=== PATIENT | male | born 1960 | race African-American/Black ===

== ENCOUNTER 2021-09-10 11:41 | Inpatient (IN) | payer BC, OTHER ==
[~2021-09-10 11:41] MED LIST: Iopamidol 300 61% 100 ML VIAL FS ONE
[2021-09-10] MEDS ORDERED: Morphine 4 MG/ML VIAL ONE ×2 (12:29→16:58)
[2021-09-10] MEDS ORDERED: Ondansetron PF 4 MG/2 ML Vial ONE (12:29)
[2021-09-10] MEDS ORDERED: Morphine 2 MG/ML VIAL ONE ×2 (13:01→16:58)
[2021-09-10 13:03] LABS: #Monocytes 1.2 10x3/uL (0.0-1.1); #Neutrophils 16.9 10x3/uL (1.5-8.4); %Basophils 0.2 % (0.0-2.0); %Eosinophils 0.1 % (0.0-6.0); %Lymphocytes 3.2 % (18.0-47.0); %Monocytes 6.5 % (0.0-10.0); %Neutrophils 89.4 % (40.0-75.0); Hemoglobin 13.5 g/dL (13.5-17.5); Mean Corpuscular HGB CONC 33.8 g/dL (32.0-36.0); Mean Corpuscular Hemoglobin 31.4 pg (27.0-33.0); Mean Corpuscular Volume 92.8 fl (81.2-95.1); Mean Platelet Volume 10.4 fl (7.4-10.4); Platelet Count 253 10x3/uL (150-450); RBC Distribution Width 13.9 % (11.5-14.5); White Blood Cell (WBC) Count 18.9 10x3/uL (3.5-10.5)
[2021-09-10 13:19] LABS: ALT (SGPT) 31 U/L (8-55); AST (SGOT) 26 U/L (5-34); Alkaline Phosphatase 62 U/L (40-110); Anion Gap 15 mmol/L (10-20); BUN (Urea Nitrogen) 10 mg/dL (8.4-25.7); Bilirubin, Total 1.5 mg/dL (0.2-1.2); Calc. Creatinine Clearance 0 mL/min (70-130); Calcium 9.4 mg/dL (7.8-10.44); Carbon Dioxide 25 mmol/L (23-31); Chloride 104 mmol/L (98-107); Globulin 2.7 g/dL (2.4-3.5); Glucose 131 mg/dL (80-115); Lipase 54 U/L (8-78); Potassium 4.1 mmol/L (3.5-5.1); Protein, Total 6.7 g/dL (5.8-8.1); Sodium 140 mmol/L (136-145)
[2021-09-10] MEDS ORDERED: Haloperidol Lactate 5 MG/ML VIAL ONE (13:56)
[2021-09-10] MEDS ORDERED: Piperacillin/Tazobactam 4.5 GM VIAL ONE (15:07)
[2021-09-10] MEDS ORDERED: Promethazine HCl 25 MG/ML VIAL IM PRN (18:03)
[2021-09-10] MEDS ORDERED: Dextrose 5% in Water 1,000 ML IV PRN (18:03)
[2021-09-10] MEDS ORDERED: Calcium Carbonate 500 MG ChewTAB PO PRN (18:03)
[2021-09-10] MEDS ORDERED: HYDROcodone/Acetaminophen 10/325 mg Tablet PO PRN (18:03)
[2021-09-10] MEDS ORDERED: hydrALAZINE 20 MG/ML VIAL SLOW IVP PRN (18:03)
[2021-09-10] MEDS ORDERED: Mag-Al 1200 mg/1200 mg/30 ML UDCUP PO PRN (18:03)
[2021-09-10] MEDS ORDERED: Dextrose 50% Abboject 50 ML SYRINGE SLOW IVP PRN (18:03)
[2021-09-10] MEDS ORDERED: Ondansetron PF 4 MG/2 ML Vial IVP PRN (18:03)
[2021-09-10] MEDS: Famotidine/PF 20 mg/2ml Vial SLOW IVP SCH (21:56)
[2021-09-10] MEDS: D5 1/2 NS w/20 mEq KCL 1,000 ML IV SCH (21:57)
[2021-09-10] MEDS: Morphine 4 MG/ML VIAL SLOW IVP PRN (22:00)
[2021-09-10] MEDS: Famotidine 20 MG TAB PO SCH (22:03)
[2021-09-10] MEDS: Piperacillin/Tazobactam 3.375 GM in Sodium Chloride 0.9% 100 ML IVPB SCH (23:06)
[2021-09-10 23:45] VITALS: BMI 39.5
[2021-09-11] MEDS: Ketorolac Tromethamine 30 MG/ML VIAL IVP SCH ×3 (00:30→19:49)
[2021-09-11] MEDS: Morphine 4 MG/ML VIAL SLOW IVP PRN ×2 (02:33→04:38)
[2021-09-11 03:34] LABS: SARS-CoV-2 NAA Rapid Test Not Detected (NotDetected)
[2021-09-11] MEDS: D5 1/2 NS w/20 mEq KCL 1,000 ML IV SCH ×3 (04:42→21:44)
[2021-09-11] MEDS ORDERED: Bupivacaine 0.25% HCL 30 ML VIAL ONE (06:53)
[2021-09-11] MEDS ORDERED: EPINEPHrine 1 MG/ML AMP ONE (06:54)
[2021-09-11] MEDS ORDERED: Iopamidol 0 ML ONE (06:55)
[2021-09-11] MEDS ORDERED: Iopamidol 15 ML ONE (06:55)
[2021-09-11] MEDS: Piperacillin/Tazobactam 3.375 GM in Sodium Chloride 0.9% 100 ML IVPB SCH ×3 (07:03→21:45)
[2021-09-11] MEDS ORDERED: Lidocaine 1% PF 5 ML VIAL ONE (07:40)
[2021-09-11] MEDS ORDERED: Glycopyrrolate 0.2 MG/ML 5 ML SYRINGE ONE ×2 (07:40→07:41)
[2021-09-11] MEDS ORDERED: Midazolam HCl 2 mg/2 ml Vial ONE (07:40)
[2021-09-11] MEDS ORDERED: Ondansetron PF 4 MG/2 ML Vial ONE (07:40)
[2021-09-11] MEDS ORDERED: Fentanyl 250 MCG/5 ML VIAL ONE (07:40)
[2021-09-11] MEDS ORDERED: Dexamethasone 4 mg/ml Vial ONE (07:40)
[2021-09-11] MEDS ORDERED: PROPOFOL 40 ML ONE (07:40)
[2021-09-11] MEDS ORDERED: Metoclopramide HCl 10 MG/2 ML VIAL ONE (07:40)
[2021-09-11] MEDS ORDERED: Rocuronium Bromide 10 MG/ML (10ML VIAL) ONE ×2 (07:40→10:29)
[2021-09-11] MEDS ORDERED: Succinylcholine 200 MG/10 ml SYRINGE FS ONE (07:41)
[2021-09-11] MEDS ORDERED: Ketorolac Tromethamine 30 MG/ML VIAL ONE (07:41)
[2021-09-11] MEDS ORDERED: PHENYLEPHRINE-NS 100 MCG/ML 10 ML SYRINGE ONE ×3 (07:54→09:22)
[2021-09-11] MEDS ORDERED: SUGAMMADEX SODIUM 200 MG/2 ML VIAL ONE (11:05)
[2021-09-11] MEDS ORDERED: Fentanyl 100 MCG/2 ML VIAL ONE (11:13)
[2021-09-11] MEDS ORDERED: diphenhydrAMINE 25 MG CAP PO PRN (12:00)
[2021-09-11] MEDS ORDERED: Zolpidem Tartrate 5 MG TAB PO PRN (12:00)
[2021-09-11] MEDS ORDERED: fentaNYL Citrate/PF 1,000 MCG in Sodium Chloride 0.9% 30 ML IV PRN (12:00)
[2021-09-11] MEDS ORDERED: diphenhydrAMINE 50 MG/ML VIAL IM/IV PRN (12:00)
[2021-09-11] MEDS ORDERED: Ondansetron PF 4 MG/2 ML Vial IVP PRN (12:00)
[2021-09-11] MEDS ORDERED: Promethazine HCl 25 MG/ML VIAL IM PRN (12:00)
[2021-09-11] MEDS: Famotidine 20 MG TAB PO SCH (13:12)
[2021-09-11] MEDS: Famotidine/PF 20 mg/2ml Vial SLOW IVP SCH ×2 (13:12→21:46)
[2021-09-12] MEDS: Famotidine 20 MG TAB PO SCH ×3 (00:35→21:07)
[2021-09-12] MEDS: Ketorolac Tromethamine 30 MG/ML VIAL IVP SCH ×3 (00:45→12:35)
[2021-09-12 05:04] LABS: Hemoglobin 12.4 g/dL (13.5-17.5); Mean Corpuscular HGB CONC 34.4 g/dL (32.0-36.0); Mean Corpuscular Hemoglobin 31.4 pg (27.0-33.0); Mean Corpuscular Volume 91.1 fl (81.2-95.1); Mean Platelet Volume 10.3 fl (7.4-10.4); Platelet Count 265 10x3/uL (150-450); RBC Distribution Width 14.3 % (11.5-14.5); Red Blood Cell (RBC) Count 3.95 10x6/uL (4.32-5.72); White Blood Cell (WBC) Count 19.5 10x3/uL (3.5-10.5)
[2021-09-12] MEDS: D5 1/2 NS w/20 mEq KCL 1,000 ML IV SCH ×4 (05:12→18:38)
[2021-09-12 05:30] LABS: ALT (SGPT) 66 U/L (8-55); AST (SGOT) 47 U/L (5-34); Albumin 3.2 g/dL (3.4-4.8); Alkaline Phosphatase 73 U/L (40-110); Bilirubin, Direct 0.9 mg/dL (0.1-0.3); Bilirubin, Total 1.5 mg/dL (0.2-1.2); Protein, Total 6.3 g/dL (5.8-8.1)
[2021-09-12 05:44] LABS: Anion Gap 13 mmol/L (10-20); BUN (Urea Nitrogen) 28 mg/dL (8.4-25.7); Calc. Creatinine Clearance 80 mL/min (70-130); Calcium 8.7 mg/dL (7.8-10.44); Carbon Dioxide 24 mmol/L (23-31); Chloride 102 mmol/L (98-107); Glucose 130 mg/dL (80-115); Potassium 4.3 mmol/L (3.5-5.1); Sodium 135 mmol/L (136-145)
[2021-09-12 05:50] LABS: MDiff Complete? YES
[2021-09-12 05:53] LABS: Band 3 % (5-11); Lymphocytes 5 % (21-51); Monocytes 6 % (0-10); Neutrophil 86 % (42-75)
[2021-09-12 05:54] LABS: Anisocytosis SLIGHT = 6-15 cells (100X) (0-5/hpf); Microcytosis SLIGHT = 6-15 cells (100X) (0-5/hpf); Platelet Morphology Comment Appears Adequate
[2021-09-12] MEDS: Piperacillin/Tazobactam 3.375 GM in Sodium Chloride 0.9% 100 ML IVPB SCH ×3 (06:24→21:07)
[2021-09-12] MEDS: Amlodipine 10 MG TAB PO SCH (09:25)
[2021-09-12] MEDS: Famotidine/PF 20 mg/2ml Vial SLOW IVP SCH ×2 (09:33→21:07)
[2021-09-12] MEDS ORDERED: Morphine 2 MG/ML VIAL SLOW IVP PRN (12:52)
[2021-09-12] MEDS ORDERED: Sodium Chloride 0.9% 1,000 ML IV SCH (13:00)
[2021-09-12] MEDS: HYDROcodone/Acetaminophen 7.5/325 mg Tablet PO PRN ×3 (15:16→22:34)
[2021-09-13] MEDS: D5 1/2 NS w/20 mEq KCL 1,000 ML IV SCH ×4 (04:16→22:11)
[2021-09-13 04:18] LABS: #Eosinphils 0.1 10x3/uL (0.0-0.5); #Monocytes 0.9 10x3/uL (0.0-1.1); #Neutrophils 9.9 10x3/uL (1.5-8.4); %Basophils 0.2 % (0.0-2.0); %Eosinophils 0.7 % (0.0-6.0); %Lymphocytes 7.7 % (18.0-47.0); %Monocytes 7.4 % (0.0-10.0); %Neutrophils 83.2 % (40.0-75.0); Hemoglobin 11.1 g/dL (13.5-17.5); Mean Corpuscular HGB CONC 33.9 g/dL (32.0-36.0); Mean Corpuscular Hemoglobin 31.3 pg (27.0-33.0); Mean Corpuscular Volume 92.1 fl (81.2-95.1); Mean Platelet Volume 9.8 fl (7.4-10.4); Platelet Count 265 10x3/uL (150-450); RBC Distribution Width 14.1 % (11.5-14.5); Red Blood Cell (RBC) Count 3.55 10x6/uL (4.32-5.72); White Blood Cell (WBC) Count 11.9 10x3/uL (3.5-10.5)
[2021-09-13 04:43] LABS: ALT (SGPT) 41 U/L (8-55); AST (SGOT) 26 U/L (5-34); Albumin 2.9 g/dL (3.4-4.8); Alkaline Phosphatase 69 U/L (40-110); Anion Gap 12 mmol/L (10-20); BUN (Urea Nitrogen) 21 mg/dL (8.4-25.7); Bilirubin, Direct 0.8 mg/dL (0.1-0.3); Bilirubin, Total 1.4 mg/dL (0.2-1.2); Calc. Creatinine Clearance 109 mL/min (70-130); Calcium 8.5 mg/dL (7.8-10.44); Carbon Dioxide 24 mmol/L (23-31); Chloride 104 mmol/L (98-107); Glucose 104 mg/dL (80-115); Potassium 4.2 mmol/L (3.5-5.1); Sodium 136 mmol/L (136-145)
[2021-09-13] MEDS: HYDROcodone/Acetaminophen 7.5/325 mg Tablet PO PRN ×2 (06:09→20:53)
[2021-09-13] MEDS: Piperacillin/Tazobactam 3.375 GM in Sodium Chloride 0.9% 100 ML IVPB SCH ×3 (06:09→22:10)
[2021-09-13] MEDS: Polyethylene Glycol 3350 17 GM Packet PO SCH (08:37)
[2021-09-13] MEDS: Amlodipine 10 MG TAB PO SCH (08:37)
[2021-09-13] MEDS: Famotidine/PF 20 mg/2ml Vial SLOW IVP SCH ×2 (08:37→20:53)
[2021-09-13] MEDS: Famotidine 20 MG TAB PO SCH ×2 (08:37→20:53)
[2021-09-14] MEDS: Piperacillin/Tazobactam 3.375 GM in Sodium Chloride 0.9% 100 ML IVPB SCH ×3 (05:40→21:19)
[2021-09-14] MEDS: D5 1/2 NS w/20 mEq KCL 1,000 ML IV SCH ×2 (06:21→12:41)
[2021-09-14] MEDS: Famotidine 20 MG TAB PO SCH ×2 (09:00→21:18)
[2021-09-14] MEDS: Polyethylene Glycol 3350 17 GM Packet PO SCH (09:00)
[2021-09-14] MEDS: Amlodipine 10 MG TAB PO SCH (09:00)
[2021-09-14] MEDS: Famotidine/PF 20 mg/2ml Vial SLOW IVP SCH (11:16)
[2021-09-14] MEDS: HYDROcodone/Acetaminophen 7.5/325 mg Tablet PO PRN (21:18)
[2021-09-15] MEDS: D5 1/2 NS w/20 mEq KCL 1,000 ML IV SCH ×5 (00:54→16:21)
[2021-09-15] MEDS: Famotidine/PF 20 mg/2ml Vial SLOW IVP SCH ×3 (00:57→20:42)
[2021-09-15] MEDS: HYDROcodone/Acetaminophen 7.5/325 mg Tablet PO PRN ×2 (01:47→20:42)
[2021-09-15] MEDS: Piperacillin/Tazobactam 3.375 GM in Sodium Chloride 0.9% 100 ML IVPB SCH ×3 (05:42→21:27)
[2021-09-15] MEDS: Polyethylene Glycol 3350 17 GM Packet PO SCH (09:25)
[2021-09-15] MEDS: Famotidine 20 MG TAB PO SCH ×2 (09:25→20:41)
[2021-09-15] MEDS: Amlodipine 10 MG TAB PO SCH (09:26)
[2021-09-16] MEDS ORDERED: Piperacillin/Tazobactam 3.375 GM in Sodium Chloride 0.9% 100 ML IVPB SCH ×2 (04:00→12:00)
[2021-09-16] MEDS: Famotidine 20 MG TAB PO SCH ×2 (09:00→09:02)
[2021-09-16] MEDS: Polyethylene Glycol 3350 17 GM Packet PO SCH (09:00)
[2021-09-16] MEDS: Amlodipine 10 MG TAB PO SCH (09:01)
[2021-09-16] MEDS: D5 1/2 NS w/20 mEq KCL 1,000 ML IV SCH (09:01)
[2021-09-16] MEDS: Famotidine/PF 20 mg/2ml Vial SLOW IVP SCH (09:02)
[2021-09-16 15:15] VITALS: BP 123/63; TEMP 98.2
== END 2021-09-16 17:06 | disposition home or self-care (01) | DRG 415 ==
LOC: CSHERS 11:41 → CSHTELE 20:35
PROVIDERS: ADMIT Surgery; ATTEND Surgery
PROC: 0FT40ZZ Resection of Gallbladder, Open Approach (ICD-10-PCS; principal; 2021-09-11)
PROC: 0DNU4ZZ Release Omentum, Percutaneous Endoscopic Approach (ICD-10-PCS; 2021-09-11)
PROC: 0FJ44ZZ Inspection of Gallbladder, Percutaneous Endoscopic Approach (ICD-10-PCS; 2021-09-11)
PROC: 0DQ84ZZ Repair Small Intestine, Percutaneous Endoscopic Approach (ICD-10-PCS; 2021-09-11)
DX: K81.0 Acute cholecystitis (principal); K91.71 Accidental puncture and laceration of a digestive system organ or structure during a digestive system procedure; Z20.822 Contact with and (suspected) exposure to COVID-19; K66.0 Peritoneal adhesions (postprocedural) (postinfection); K82.A1 Gangrene of gallbladder in cholecystitis; E66.01 Morbid (severe) obesity due to excess calories; I10 Essential (primary) hypertension; N28.9 Disorder of kidney and ureter, unspecified; R33.9 Retention of urine, unspecified; Z98.84 Bariatric surgery status; Z68.39 Body mass index [BMI] 39.0-39.9, adult; Z83.3 Family history of diabetes mellitus
CPT/HCPCS: 36415; 36416; 71045; 74177; 80048; 80053; 80076; 82247; 83605; 83690; 84484; 85025; 88304; 93005; 94760; 96365; 96375; 96376; A4649; C1713; J0171; J1100; J1630; J1885; J2250; J2270; J2405; J2543; J2704; J2765; J3010; J3480; J3490; J7050; Q9967; S0020; S0028; U0002